=== PATIENT | female | born 2000 | race Caucasian/White ===

== ENCOUNTER 2022-01-23 20:28 | Emergency (ER) | payer BC ==
[~2022-01-23] VITALS: Ht 160 cm; Wt 58.2 kg
[2022-01-23 20:36] VITALS: BP 142/91; TEMP 97.9
[2022-01-23 22:07] VITALS: PULSE 88
== END 2022-01-23 22:08 | disposition home or self-care (01) ==
LOC: COL.ER 20:28
DX: S52.125A Nondisplaced fracture of head of left radius, initial encounter for closed fracture (principal); Z28.310 Unvaccinated for COVID-19; W01.0XXA Fall on same level from slipping, tripping and stumbling without subsequent striking against object, initial encounter